=== PATIENT | female | born 1930 | race Caucasian/White ===

== ENCOUNTER 2018-12-10 20:53 | Emergency (ER) | payer MEDICARE, MEDICAID ==
[~2018-12-10] VITALS: Ht 167.6 cm; Wt 51.0 kg
[2018-12-11 02:13] VITALS: BP 106/62
== END 2018-12-11 02:16 | disposition home or self-care (01) ==
LOC: ER 21:17
DX: S09.91XA Unspecified injury of ear, initial encounter (principal); F32.9 Major depressive disorder, single episode, unspecified; F03.90 Unspecified dementia, unspecified severity, without behavioral disturbance, psychotic disturbance, mood disturbance, and anxiety; X58.XXXA Exposure to other specified factors, initial encounter; Y93.89 Activity, other specified; Y92.89 Other specified places as the place of occurrence of the external cause; Y99.8 Other external cause status
CPT/HCPCS: 99283